=== PATIENT | female | born 1970 ===

== ENCOUNTER 2023-01-10 06:00 | Day surgery (SDC) | payer OTHER ==
[~2023-01-10] VITALS: Ht 182.9 cm; Wt 93.9 kg
[2023-01-10] MEDS ORDERED: MORGIDOX100 MG PO (10:03)
[2023-01-10] MEDS ORDERED: TRAM1TAB98 PO (10:04)
[2023-01-10] MEDS ORDERED: IBU600 MG PO (10:04)
== END 2023-01-10 13:55 | disposition home or self-care (01) ==
LOC: CIR.AMB 06:00
PROVIDERS: ATTEND Obstetrics & Gynecology
DX: D06.0 Carcinoma in situ of endocervix (principal); N92.0 Excessive and frequent menstruation with regular cycle; Z91.018 Allergy to other foods; Z20.822 Contact with and (suspected) exposure to COVID-19

== ENCOUNTER 2023-03-14 11:02 | Inpatient (IN) | payer OTHER ==
[~2023-03-14] VITALS: Ht 182.9 cm; Wt 96.2 kg
[~2023-03-14 11:02] MED LIST: IBU600 MG PO; MORGIDOX100 MG PO; TRAM1TAB98 PO
[2023-03-24] MEDS ORDERED: IBUPROFEN600 MG PO (12:56)
[2023-03-24] MEDS ORDERED: ACETAMINOPHEN-1 EAC2 PO (12:56)
== END 2023-03-24 13:21 | disposition home or self-care (01) | DRG 743 ==
LOC: O/R 03-21 06:25 → OB/GYN 03-21 07:30
PROVIDERS: ADMIT Obstetrics & Gynecology; ATTEND Obstetrics & Gynecology
PROC: 0UT70ZZ Resection of Bilateral Fallopian Tubes, Open Approach (ICD-10-PCS; 2023-03-21)
PROC: 0UT10ZZ Resection of Left Ovary, Open Approach (ICD-10-PCS; 2023-03-21)
PROC: 0TJB8ZZ Inspection of Bladder, Via Natural or Artificial Opening Endoscopic (ICD-10-PCS; 2023-03-21)
PROC: 0UT90ZZ Resection of Uterus, Open Approach (ICD-10-PCS; principal; 2023-03-21 11:15)
DX: D25.1 Intramural leiomyoma of uterus (principal); D25.2 Subserosal leiomyoma of uterus; Z20.822 Contact with and (suspected) exposure to COVID-19